=== PATIENT | female | born 1940 | race American Indian/Alaskan Native ===

== ENCOUNTER 2016-07-28 04:12 | Emergency (ER) | payer MEDICARE ==
[2016-07-28] MEDS ORDERED: CARDENE DRIP 40 MG/200 ML 40 MG/200 ML BAG ONE (06:51)
[2016-07-28] MEDS ORDERED: AMIDATE IV ONE ×2 (06:58→06:59)
[2016-07-28] MEDS ORDERED: QUELICIN ONE (06:58)
[2016-07-28] MEDS ORDERED: QUELICIN IV ONE (06:59)
[2016-07-28] MEDS ORDERED: NORMODYNE IV ONE (07:00)
--- NOTE | 2016-07-28 07:18 | Cat Scan Report ---
FINAL REPORT PROCEDURE: CT HEAD/BRAIN WO CON TECHNIQUE: Computerized tomography of the head was performed without contrast material. HISTORY: Headache COMPARISON: No prior studies are available for comparison. FINDINGS: There is a very large acute patchy heterogenous parenchymal hemorrhage throughout the entire posterior right parietal and occipital lobes. This hemorrhage measures up to 8.4 centimeters AP x 4.7 centimeters transverse. There is moderate surrounding edema and this is exerting severe mass effect causing severe compression of right lateral ventricle and severe right to left shift by about 1.3 centimeters. There also an associated subdural hematoma over most of the right cerebral convexity measuring up to 6 millimeters in thickness. There is likely extension of this subdural hematoma into the interhemispheric fissure and along the tentorium. There is no evidence of hemorrhage elsewhere. Changes of an old right temporal craniotomy noted. A surgical clip is seen projecting in the medial right temporal area near the skullbase. 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 There is a very large acute parenchymal hemorrhage in the entire posterior right parietal and occipital lobes measuring up to 8.4 centimeters. This is exerting severe mass effect with severe right to left shift by up to 1.2 centimeters and severe compression of right lateral ventricle. There is moderate edema around the hemorrhage. This could be hemorrhage into a large acute infarct. It could also be hemorrhage into a tumor mass or vascular malformation or it could be a hypertensive hemorrhage. 2. In addition there is an associated moderate subdural hematoma over the entire right cerebral convexity measuring up to 6 millimeters in thickness. There is likely an extension of the subdural hematoma into the interhemispheric fissure and along the tentorium. 3. 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 Surgical clips seen in medial right temporal area near skullbase. I called the site at approximately 7:10 a.m. Eastern time on July 28, 2016 and I spoke to Dr. Cruz who was taking care this patient and I verbally informed him of the findings of the large acute hemorrhage and midline shift
[2016-07-28] MEDS ORDERED: DIPRIVAN 10 MG/ML 0 MG/0 ML BOTTLE IV ONE (07:22)
[2016-07-28] MEDS ORDERED: ARTIFICIAL TEARS OPHTH OINT OU PRN (07:23)
[2016-07-28] MEDS ORDERED: VASELINE LIP THERAPY TP PRN (07:23)
[2016-07-28] MEDS ORDERED: OSMITROL 20% IV ONE (07:56)
[2016-07-28] MEDS ORDERED: KEPPRA 1,000 MG/NS 0.75% 100ML 1,000 MG/100 ML BAG IV ONE (07:57)
[2016-07-28] MEDS ORDERED: CARDENE DRIP 40 MG/200 ML 40 MG/200 ML BAG IV SCH (08:00)
[2016-07-28] MEDS ORDERED: NACL 0.9% 500 ML IV SCH (08:00)
[2016-07-28 08:29] LABS: INR 0.98 (0.87-1.13)
[2016-07-28 08:30] LABS: Partial Thromboplastin Time 23.5 Sec. (24.2-36.6)
--- NOTE | 2016-07-28 08:43 | Emergency Department Report ---
ED General Adult HPI - General Chief complaint: Headache Time Seen by Provider: 07/28/16 06:37 - History of Present Illness Initial comments: This patient was brought to my attention at approximately 635 by one of the patient's nurses. I was told that the patient had severe hypertension. Orders for her presentation were provided by Dr. Parker. When I asked if the patient has gone to CT, I was told that the patient had just left. I asked the nurse for the neuro status of the patient and I was told that she was not unresponsive. Apparently the patient was less responsive at a minimum compared with her level of consciousness upon presentation sometime around 4:30 hour. The patient's daughter was quite distraught concerning the patient's decreasing level of consciousness and persistent hypertension. I immediately walked to CT so I could assess the patient and view the scan. There were 2 nurses with the patient in CT verified to me that the patient was at that time completely unresponsive. I reviewed the scan which showed a massive right parietal occipital hemorrhage as well as subdural blood and a greater than 1 cm midline shift with compression of the lateral ventricle. This is a most severe intracranial hemorrhage obviously. I explained the findings to the patient's disorder. She immediately requested transfer to [place]. I spoke with the [place] transfer center but they had no critical care beds. I spoke with the neurosurgeon at [facility] as well as the neuro shuttler car who both kindly accepted the patient for transfer. They did want to proceed with mannitol as well as Keppra. However, after receiving my report they stated that neuro intervention is unlikely to be offered and that comfort care will likely be recommended to the family. The family is not currently receptive to the patient remaining here for, for care despite any such recommendation. 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 Absent: tenderness, meningismus - Respiratory Respiratory exam: Present: normal lung sounds bilaterally. Absent: respiratory distress - Cardiovascular Cardiovascular Exam: Present: regular rate, normal rhythm. Absent: systolic murmur, diastolic murmur, rubs, gallop - GI/Abdominal GI/Abdominal exam: Present: soft. Absent: distended, tenderness, guarding, rebound - Extremities Exam Extremities exam: Present: normal inspection - Neurological Exam Neurological exam: Present: motor sensory deficit, other (GCS is 3. The patient has a very brisk left plantar reflex otherwise no movement on sternal rub.). Absent: CN II-XII intact - Psychiatric Psychiatric exam: Present: other (obtunded) - Skin Skin exam: Present: warm, dry, intact, normal color. Absent: rash ED Course Vital Signs 07/28/16 07/28/16 07/28/16 06:56 07:00 07:05 Pulse Rate 77 85 78 Respiratory 18 Rate Blood Pressure 258/105 Blood Pressure [Left] O2 Sat by Pulse 98 100 Oximetry 07/28/16 07/28/16 07/28/16 07:15 07:30 07:44 Pulse Rate 78 71 78 Respiratory 18 16 18 Rate Blood Pressure Blood Pressure 158/79 124/68 150/69 [Left] O2 Sat by Pulse 100 100 100 Oximetry - Reevaluation(s) Reevaluation #1: After reviewing the patient's CT scan I called immediately for elective intubation with RSI. Control the patient's blood pressure further with labetalol and Cardene. RSI was performed under direct laryngoscopy without difficulty. Patient's blood pressure was stabilized. The patient showed no signs of motor function other than what appeared to be reflex. She did have some gagging per nurse secondary to the endotracheal tube. I initially placed her on propofol but she had an apparent significant effect on her blood pressure so that was discontinued. I spoke with the neurosurgeon and neuro shuttler car. They both stated that intervention is very unlikely to be offered and back, for care would be recommended in this situation. Not withstanding, the patient received mannitol and Keppra. Her condition did not deteriorate. Her transfer his incipient. 07/28/16 08:46 - Intubation Time Out Performed: Yes Sedative: Etomidate Paralytic: Succinylcholine Laryngoscope: Rylee Size: 4 ET Tube Size: 7.5 Tube Secured Depth (cm): 23 Tube Secured Location: teeth Tube Placement Confirmation: visualized tube passing t Patient Tolerated Procedure: well Intubation Complications: none ED Medical Decision Making - Lab Data Hypokalemia noted the potassium 3.1. That can be addressed later. - EKG Data EKG shows normal: sinus rhythm Rate: normal - EKG Data Interpretation: other (nonsignificant inferolateral Q waves) - Radiology Data Radiology results: report reviewed interpreted by me: CT findings are above described S x-ray shows adequate endotracheal tube position and no acute findings. Critical Care Time: Yes Critical care time in (mins) excluding proc time.: 45 Critical care attestation.: If time is entered above; I have spent that time in minutes in the direct care of this critically ill patient, excluding procedure time. ED Disposition Clinical Impression: Intracranial hemorrhage, Hypertensive emergency Disposition: DC/TX ANOTHER TYPE HEALTHCARE Is pt being admited?: No Does the pt Need Aspirin: No Condition: Stable Instructions: Hypertension (ED) Referrals: ABE JOHNS MD [Primary Care Provider] - 3-5 Days Time of Disposition: 08:54
--- NOTE | 2016-07-28 09:29 | XRay Report ---
AP chest x-ray. Findings: The heart and lungs reveal no acute findings. An endotracheal tube is in satisfactory position. Impression: No acute findings.
--- NOTE | 2016-07-28 11:02 | Emergency Department Report ---
Blank Doc - Documentation Documentation: This patient was brought to my attention about 445 AM. I was notified that the patient had come to the ED with the complaint of a headache, pain behind the eye and a very elevated blood pressure at about 250/130. There was no reference to any altered mental status or neurological deficits. It was EMR downtime so all orders were handwritten and then put into the system by the harbor department manager, but I immediately ordered a CT scan of the head without contrast, 20 mg IV Labetalol for blood pressure control and labs to be drawn. At this time, I went on taking care of other patients in the emergency department, including a hypotensive patient that required a central venous catheter to be placed and pressors to be started and titrated. I did not hear anything else about this patient until about 630 AM when a nurse notified myself and my colleague that the patient's blood pressure was still elevated and that further intervention would be necessary. I was also unaware that the patient had not yet had her CT head completed. It was at this point that my colleague, Dr Cruz, signed up for the case.
[2016-07-28 11:44] VITALS: BP 155/75
[2016-08-01 10:03] LABS: ISTAT Base Excess 2; ISTAT HCO3 24.7; ISTAT PCO2 28.9 (35-45); ISTAT PO2 227 (80-105); ISTAT SO2 100; ISTAT TCO2 26
== END 2016-07-28 09:30 | disposition other institution (70) ==
LOC: ED 04:12
DX: I10 Essential (primary) hypertension (principal); I62.9 Nontraumatic intracranial hemorrhage, unspecified
CPT/HCPCS: 31500; 36415; 70450; 71010; 82803; 85610; 85730; 93005; 93010; 96365; 96366; 96375; 99291; J0330; J1953; 94002; J2150; J2704